=== PATIENT | male | born 1975 | race Caucasian/White ===

== ENCOUNTER → 2023-11-14 06:31 | Day surgery (SDC) | payer BC, SELFPAY | LOC: GI 06:31 | PROVIDERS: ATTENDING PHYSICIAN Surgery | DX: Z12.11 Encounter for screening for malignant neoplasm of colon (principal); K62.89 Other specified diseases of anus and rectum; K62.1 Rectal polyp | CPT/HCPCS: 45385; 88305 ==

== ENCOUNTER → 2024-01-02 17:15 | Outpatient (REF) | payer BC, SELFPAY | LOC: RAD 17:15 | PROVIDERS: ATTENDING PHYSICIAN Physician Assistant | DX: M25.532 Pain in left wrist (principal) | CPT/HCPCS: 73110 ==